=== PATIENT | female | born 1985 | race African-American/Black ===

== ENCOUNTER 2018-12-06 00:27 | Emergency (ER) | payer OTHER ==
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
[2018-12-06 02:09] LABS: APPEARANCE,URINE CLEAR; BILIRUBIN,URINE NEGATIVE (NEGATIVE); COLOR,URINE YELLOW; GLUCOSE, URINE NEGATIVE (NEGATIVE); KETONES,URINE NEGATIVE (NEGATIVE); LEUKOCYTE ESTERASE,URINE NEGATIVE (NEGATIVE); NITRITE,URINE NEGATIVE (NEGATIVE); PROTEIN,URINE NEGATIVE (NEGATIVE); URINE SPECIFIC GRAVITY 1.016; UROBILINOGEN,URINE NEGATIVE mg/dL (<2.0)
[2018-12-06 02:10] LABS: ALANINE AMINOTRANSFERASE 30 U/L (9-52); ALBUMIN 4.2 g/dL (3.5-5.0); ALKALINE PHOSPHATASE 114 U/L (38-126); ANION GAP 9 (5-19); ASPARTATE AMINO TRANSFERASE 39 U/L (14-36); BILIRUBIN,DIRECT 0.3 mg/dL (0.0-0.4); BILIRUBIN,TOTAL 0.3 mg/dL (0.2-1.3); BLOOD UREA NITROGEN 10 mg/dL (7-20); CALCIUM 9.9 mg/dL (8.4-10.2); CARBON DIOXIDE 24 mmol/L (22-30); CHLORIDE 105 mmol/L (98-107); GLUCOSE 86 mg/dL (75-110); POTASSIUM 3.5 mmol/L (3.6-5.0); SODIUM 137.8 mmol/L (137-145)
[2018-12-06 02:15] LABS: ABSOLUTE BASOPHILS # (AUTO) 0.1 10^3/uL (0.0-0.2); BASOPHILS % (AUTO) 0.9 % (0-2); TOTAL CELLS COUNTED % (AUTO) 100 %
[2018-12-06 02:18] LABS: HEMOGLOBIN 6.9 g/dL (12.0-15.5)
--- NOTE | 2018-12-06 02:20 | RADIOLOGY REPORT (SQ) ---
EXAM DESCRIPTION: XR CLAVICLE COMPLETED DATE/TME: 12/06/2018 01:25 CLINICAL HISTORY: 33 years, Female, clavicle pain COMPARISON: None. NUMBER OF VIEWS: 2 TECHNIQUE: 2 view left clavicle LIMITATIONS: None. FINDINGS: Negative for fracture or dislocation. Minor degenerative change of the AC joint. Soft tissues are unremarkable IMPRESSION: Minor degenerative change of the AC joint copyright 2010 [employer]- All Rights Reserved
[2018-12-06] MEDS ORDERED: ACETAMINOPHEN 325 MG TABLET PO ONE (02:30)
[2018-12-06] MEDS ORDERED: POTASSIUM CHLORIDE 10 MEQ CAPSULE.ER PO ONE (02:31)
[2018-12-06 02:40] LABS: ABSOLUTE LYMPHOCYTES (AUTO) 2.4 10^3/uL (0.5-4.7); ABSOLUTE MONOCYTES (AUTO) 1.1 10^3/uL (0.1-1.4); ABSOLUTE NEUT (AUTO) 5.8 10^3/uL (1.7-8.2); EOSINOPHILS % (AUTO) 0.5 % (0-6); HEMATOCRIT 24.5 % (36.0-47.0); LYMPHOCYTES % (AUTO) 25.7 % (13-45); MONOCYTES % (AUTO) 11.3 % (3-13); PLATELET COUNT 306 10^3/uL (150-450); RED CELL DISTRIBUTION WIDTH 27.9 % (11.5-14.0); SEGMENTED NEUTROPHILS % (AUTO) 61.6 % (42-78); WHITE BLOOD COUNT 9.5 10^3/uL (4.0-10.5)
[2018-12-06 02:44] LABS: MEAN CORPUSCULAR HEMOGLOBIN 15.3 pg (27.0-33.4); MEAN CORPUSCULAR HGB CONC 28.2 g/dL (32.0-36.0); MEAN CORPUSCULAR VOLUME 54 fl (80-97)
[2018-12-06 02:54] LABS: ANISOCYTOSIS 3+; HELMET CELLS SLIGHT; HYPOCHROMASIA 3+; OVALOCYTES 2+; PLATELET COMMENT ADEQUATE; POIKILOCYTOSIS 2+; SCHISTOCYTES 1+; TARGET CELLS 1+; TEAR DROP CELLS 1+; TOXIC GRANULATION SLIGHT; TOXIC VACUOLATION PRESENT
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
[2018-12-06 05:22] VITALS: BP 119/78
--- NOTE | 2018-12-06 10:16 | EKG REPORT ---
SEVERITY:- OTHERWISE NORMAL ECG - SINUS TACHYCARDIA : Confirmed by: Patricia Hines MD 06-Dec-2018 10:15:01
[2018-12-06 15:23] LABS: PATH REVIEW PATHOLOGIST REVIEWED
== END 2018-12-06 05:22 | disposition home or self-care (01) ==
LOC: ER 00:27
DX: S20.212A Contusion of left front wall of thorax, initial encounter (principal); V57.5XXA Driver of pick-up truck or van injured in collision with fixed or stationary object in traffic accident, initial encounter; Y92.411 Interstate highway as the place of occurrence of the external cause; D50.9 Iron deficiency anemia, unspecified; R55 Syncope and collapse; R53.83 Other fatigue; M25.50 Pain in unspecified joint; M25.40 Effusion, unspecified joint; F17.200 Nicotine dependence, unspecified, uncomplicated
CPT/HCPCS: 36415; 80053; 81001; 84484; 85025; 93005; 93010; 99284